=== PATIENT | male | born 1965 | race American Indian/Alaskan Native ===

== ENCOUNTER 2017-01-05 13:42 | Emergency (ER) | payer MEDICARE ==
[2017-01-05] MEDS ORDERED: CATAPRES PO ONE (14:14)
[2017-01-05] MEDS ORDERED: CATAPRES ONE (14:14)
[2017-01-05] MEDS ORDERED: TORADOL IM ONE (16:28)
[2017-01-05] MEDS ORDERED: FLEXERIL PO ONE (16:28)
[2017-01-05 18:40] VITALS: BP 159/108
--- NOTE | 2017-01-05 19:10 | Cat Scan Report ---
FINAL REPORT EXAM: CT ABDOMEN PELVIS WO CON HISTORY: back pain TECHNIQUE: Unenhanced CT of the abdomen and pelvis at 1.25 millimeter axial increments. Coronal and sagittal reconstruction was also performed. PRIORS: None. FINDINGS: There is no evidence for renal calculi or hydronephrosis. No evidence for ureteral or bladder calculus is seen. No evidence for renal or bladder mass is noted. There is a 1 cm hypodense cyst in the anterior midpole right kidney. Otherwise, within the limits of a noncontrast exam, the liver, spleen, pancreas, gallbladder, and adrenal glands are unremarkable. No evidence for retroperitoneal or pelvic lymphadenopathy is seen. The bowel loops have normal caliber. Few diverticuli are scattered throughout the colon without active diverticulitis. No fluid collection, inflammatory change, or free air is seen within the abdomen or pelvis. The appendix is normal. Within the pelvis, the prostate is normal. Images through the upper abdomen include the lung bases which demonstrates mild linear atelectasis or fibrosis in the right base posteriorly. Bony structures show an incidental sclerotic bone island in the S1 vertebral body is seen. IMPRESSION: 1. No evidence for renal calculi or renal obstruction. 2. Cyst in the right kidney. 3. Diverticulosis without active diverticulitis.
--- NOTE | 2017-01-06 18:15 | Emergency Department Report ---
Entered by VIVIANE BEACH, acting as scribe for JUAN HUFF PA. ED Back Pain/Injury HPI - General Chief Complaint: Back Pain/Injury Stated Complaint: BACK PAIN Time Seen by Provider: 01/05/17 16:05 Source: patient Limitations: No Limitations - History of Present Illness Initial Comments: 51 y/o male with PMHx of HTN, presents to the ED with pain in his lower back radiating to his left leg that started last week. Patient reports that he was lifting a heavy box onto a truck and felt a sharp pain his lower back. Pain is aggravated by sitting for long periods of time or by any movement. Pt notes re- injuring his back today while doing a similar lifting movement. Patient denies any falls or trauma to the affected area. Patient is non compliant with HTN medication at this time. MD Complaint: back pain (lower ) -: week(s) (1) Similar Symptoms Previously: No Place: work Radiation: left leg Severity: mild Severity scale (0 -10): 4 Consistency: constant Improves With: none Worsens With: none Context: while lifting (heavy box) Associated Symptoms: denies other symptoms. denies: confusion, weakness, chest pain, numbness, cough, headaches, abdominal pain, nausea/vomiting, shortness of breath, syncope - Related Data Previous Rx's Medication Instructions Recorded Last Taken Type Cyclobenzaprine [Flexeril] 10 mg PO QHS PRN #30 tablet 01/05/17 Unknown Rx Naproxen [Naprosyn] 500 mg PO BID #30 tablet 01/05/17 Unknown Rx amLODIPine [Norvasc] 10 mg PO DAILY #30 tab 01/05/17 Unknown Rx Allergies Allergy/AdvReac Type Severity Reaction Status Date / Time No Known Allergies Allergy Verified 01/05/17 14:20 ED Review of Systems Comment: All other systems reviewed and negative Constitutional: denies: chills, fever Respiratory: denies: cough, shortness of breath Cardiovascular: denies: chest pain Gastrointestinal: denies: abdominal pain, nausea, vomiting Musculoskeletal: back pain (left) Skin: denies: rash Neurological: denies: headache, weakness, numbness ED Past Medical Hx - Past Medical History Hx Hypertension: Yes Hx Arthritis: Yes (DJD) Hx Psychiatric Treatment: (bipolar) Hx Asthma: Yes Additional medical history: colon polyps - Social History Smoking Status: Current Every Day Smoker Substance Use Type: None - Medications Home Medications: Home Medications Medication Instructions Recorded Confirmed Last Taken Type Cyclobenzaprine [Flexeril] 10 mg PO QHS PRN #30 tablet 01/05/17 Unknown Rx Naproxen [Naprosyn] 500 mg PO BID #30 tablet 01/05/17 Unknown Rx amLODIPine [Norvasc] 10 mg PO DAILY #30 tab 01/05/17 Unknown Rx ED Physical Exam - General Limitations: No Limitations - GI/Abdominal GI/Abdominal exam: Absent: mass, bruit - Expanded Lower Extremity Exam Left Hip exam: Present: normal inspection, full ROM Upper Leg exam: Present: normal inspection, full ROM Knee exam: Present: normal inspection, full ROM. Absent: tenderness, erythema Lower Leg exam: Present: normal inspection, full ROM. Absent: tenderness, swelling, erythema, Josefa's sign Ankle exam: Present: normal inspection, full ROM. Absent: tenderness Foot/Toe exam: Present: normal inspection, full ROM. Absent: tenderness, swelling - Other Other exam information: GENERAL: Patient is alert and oriented x 3. No apparent distress, normal gait, atraumatic. HEAD: Head is normocephalic and atraumatic. BACK: No TTP to back. BREAST: Symmetrical. Supple bilaterally, No Masses, lumps, lesions, ulcerations. LUNGS: no resp distress, no wheezing. Normal breath sounds HEART: reg rate, rhythm and normal s1/s2 sounds. EXTREMITIES/MUSCULOSKELETAL: No cyanosis, clubbing, rash, lesions or edema. Full ROM bilaterally. UE/LE Pulses 2+ bilaterally. LE and UE 5+ strength bilaterally. Straight left raise + left leg. Flexion/extension normal in bilateral legs. Joints intact. SKIN: Warm and dry. No lesions, ulceration or induration present. NEUROLOGIC: No focal deficit., Cranial nerves II - XII are grossly intact. No loss of sensation. No facial droop. Negative romberg.. PSYCHIATRIC: Mood is congruent with affect. Denies suicidal or homicidal ideations. ED Course Vital Signs 01/05/17 01/05/17 01/05/17 14:03 14:18 16:51 Temperature 98 F Pulse Rate 78 78 Respiratory 20 18 Rate Blood Pressure 183/131 183/131 Blood Pressure [Right] O2 Sat by Pulse 98 Oximetry 01/05/17 01/05/17 17:43 18:40 Temperature Pulse Rate 110 H Respiratory 18 Rate Blood Pressure Blood Pressure 165/119 159/108 [Right] O2 Sat by Pulse 99 Oximetry ED Medical Decision Making - Radiology Data Radiology results: report reviewed, image reviewed FINAL REPORT EXAM: CT ABDOMEN PELVIS WO CON HISTORY: back pain TECHNIQUE: Unenhanced CT of the abdomen and pelvis at 1.25 millimeter axial increments. Coronal and sagittal reconstruction was also performed. PRIORS: None. FINDINGS: There is no evidence for renal calculi or hydronephrosis. No evidence for ureteral or bladder calculus is seen. No evidence for renal or bladder mass is noted. There is a 1 cm hypodense cyst in the anterior midpole right kidney. Otherwise, within the limits of a noncontrast exam, the liver, spleen, pancreas, gallbladder, and adrenal glands are unremarkable. No evidence for retroperitoneal or pelvic lymphadenopathy is seen. The bowel loops have normal caliber. Few diverticuli are scattered throughout the colon without active diverticulitis. No fluid collection, inflammatory change, or free air is seen within the abdomen or pelvis. The appendix is normal. Within the pelvis, the prostate is normal. Images through the upper abdomen include the lung bases which demonstrates mild linear atelectasis or fibrosis in the right base posteriorly. Bony structures show an incidental sclerotic bone island in the S1 vertebral body is seen. IMPRESSION: 1. No evidence for renal calculi or renal obstruction. 2. Cyst in the right kidney. 3. Diverticulosis without active diverticulitis. Transcribed By: [facility] Dictated By: EKTA CAMARGO MD Electronically Authenticated By: EKTA CAMARGO MD Signed Date/Time: 01/05/171903 - Medical Decision Making She is a 51-year-old male presents to the ED with lumbar radiculopathy ED course: Patient received Toradol and Flexeril in ED CT of the abdomen and pelvis ordered. CT of the abdomen and pelvis shows - see above Discussed findings with patient. Discussed the patient will follow up her primary care physician. Discussed heat therapy 3 times daily. Patient's blood pressure was elevated during triage, clonidine 0.2 administered. Blood pressure reducing decrease prior to discharge he is asymptomatic, blood pressure due to noncompliance. Discussed patient will refill blood pressure medication and needs to follow-up with primary care physician. ED Disposition Clinical Impression: Lumbar radiculopathy, Lumbar strain Disposition: DC- TO HOME OR SELFCARE Is pt being admited?: No Does the pt Need Aspirin: No Condition: Stable Instructions: Low Back Strain (ED), Lumbar Radiculopathy (ED), Core Strengthening Exercises (GEN) Prescriptions: Cyclobenzaprine [Flexeril] 10 mg PO QHS PRN #30 tablet PRN Reason: Muscle Spasm amLODIPine [Norvasc] 10 mg PO DAILY #30 tab Naproxen [Naprosyn] 500 mg PO BID #30 tablet Referrals: PRIMARY CAREMD [Primary Care Provider] - 3-5 Days SID ESPINOSA MD [Staff Physician] - 3-5 Days AVIVA LOZA MD [Referring] - 3-5 Days [facility] [Outside] - 3-5 Days [facility] [Outside] - 3-5 Days [facility] [Outside] - 3-5 Days Forms: Accompanied Note, Work/School Release Form Time of Disposition: 16:48 This documentation as recorded by the BAYLEE merrill RYAN,accurately reflects the service I personally performed and the decisions made by DARIA awad OYINLOLA A PA.
== END 2017-01-05 19:18 | disposition home or self-care (01) ==
LOC: ED 13:42
DX: S39.012A Strain of muscle, fascia and tendon of lower back, initial encounter (principal); M54.16 Radiculopathy, lumbar region; I10 Essential (primary) hypertension; M19.90 Unspecified osteoarthritis, unspecified site; J45.909 Unspecified asthma, uncomplicated; K63.5 Polyp of colon; F17.200 Nicotine dependence, unspecified, uncomplicated; X58.XXXA Exposure to other specified factors, initial encounter; Y93.89 Activity, other specified; Y99.8 Other external cause status; Y92.89 Other specified places as the place of occurrence of the external cause
CPT/HCPCS: 74176; 96372; 99283; J1885